=== PATIENT | female | born 2000 | race African-American/Black ===

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

== ENCOUNTER 2019-05-16 11:59 | Observation (INO) ==
[2019-05-16] MEDS ORDERED: SODIUM CHLORIDE 0.9% 1,000 ML IV STA (13:31)
[2019-05-16] MEDS ORDERED: HYDROmorphone 2 MG/1 ML VIAL IV STA ×2 (13:32→14:11)
[2019-05-16 13:42] LABS: Basophils % 0.3 % (0.0-0.8); Eosinophils # 0.3 10*3/uL (0.0-0.87); Hematocrit 36.4 VOL% (35.7-47.0); Immature Granulocytes % 0.9 %; Immature Granulocytes Absolute 0.12 #; Lymphocytes # 4.4 10*3/uL (1.4-4.0); Lymphocytes % 31.8 % (21.3-54.2); Mean Corpuscular Volume 79.5 FL (87-102); Mean Platelet Volume 12.2 FL (9.6-12.0); Monocytes % 3.9 % (1.7-12.7); Neutrophils % 61.1 % (38.7-73.9); Platelet Count 240 T/CUMM (130-400); Red Blood Count 4.58 MC/CUMM (3.8-5.5); Red Cell Distribution Width 15.5 % (9.3-17.3); White Blood Count 13.7 T/CUMM (4-12)
[2019-05-16 14:01] LABS: Calcium 9.1 MG/DL (8.5-10.1)
[2019-05-16 14:03] LABS: Apearance,Urine Slightly Hazy (Clear); Bilirubin,Urine Negative (Negative); Blood, Urine Negative (Negative); Glucose,Urine (UA) Negative (Negative); Ketones,Urine Negative (Negative); Mucus,Urine Occasional /LPF (Occasional); Nitrite,Urine Negative (Negative); Protein,Urine Negative; RBC,Urine 1 /HPF (0-4); Squamous Epithelial Cell,Urine Occasional /HPF (0-10); Urine Color Yellow (Yellow); Urine Specific Gravity 1.012 (1.001-1.035); Urine Urobilinogen < 2.0 EU/DL (0.2-1.0); WBC,Urine 1 /HPF (0-6)
[2019-05-16] MEDS ORDERED: LACTULOSE 20 GM/30 ML UDCUP PO PRN (14:30)
[2019-05-16] MEDS ORDERED: DOCUSATE SODIUM 100 MG CAPSULE PO PRN (14:30)
[2019-05-16] MEDS: SODIUM CHLORIDE 0.45% 1,000 ML IV SCH (14:57)
[2019-05-16] MEDS: ONDANSETRON 4 MG/2 ML VIAL IV PRN ×2 (15:23→20:04)
[2019-05-16] MEDS ORDERED: RIZATRIPTAN ODT 5 MG TABLET PO PRN (16:41)
[2019-05-16] MEDS: PANTOPRAZOLE 40 MG TABLET PO SCH (20:04)
[2019-05-16] MEDS: HYDROmorphone 2 MG/1 ML VIAL IV PRN (20:04)
[2019-05-16] MEDS ORDERED: FOLIC ACID 1 MG TABLET PO SCH (21:00)
[2019-05-16] MEDS ORDERED: RIVAROXABAN 10 MG TABLET PO SCH (21:00)
[2019-05-17] MEDS: SODIUM CHLORIDE 0.45% 1,000 ML IV SCH ×2 (03:06→03:25)
[2019-05-17] MEDS: ONDANSETRON 4 MG/2 ML VIAL IV PRN (03:30)
[2019-05-17] MEDS: HYDROmorphone 2 MG/1 ML VIAL IV PRN ×2 (03:38→07:52)
[2019-05-17 05:29] LABS: Basophils % 0.2 % (0.0-0.8); Eosinophils # 0.2 10*3/uL (0.0-0.87); Eosinophils % 1.4 % (0.00-10.9); Hematocrit 34.5 VOL% (35.7-47.0); Hemoglobin 11.2 GM/DL (12.0-16.0); Immature Granulocytes % 0.6 %; Immature Granulocytes Absolute 0.09 #; Lymphocytes # 3.9 10*3/uL (1.4-4.0); Lymphocytes % 26.8 % (21.3-54.2); Mean Corpuscular HGB Conc 32.5 GM/DL (32-36); Mean Corpuscular Volume 79.5 FL (87-102); Mean Platelet Volume 13.1 FL (9.6-12.0); Monocytes % 4.6 % (1.7-12.7); Neutrophils % 66.4 % (38.7-73.9); Platelet Count 230 T/CUMM (130-400); Red Blood Count 4.34 MC/CUMM (3.8-5.5); Red Cell Distribution Width 15.1 % (9.3-17.3); White Blood Count 14.4 T/CUMM (4-12)
[2019-05-17 06:08] LABS: Calcium 8.6 MG/DL (8.5-10.1); Osmolality,Calculated 268.8 MOS/KG (273-304)
[2019-05-17 08:25] VITALS: BP 116/57
[2019-05-17] MEDS: PANTOPRAZOLE 40 MG TABLET PO SCH (08:36)
[2019-05-17] MEDS ORDERED: DULoxetine 30 MG CAPSULE PO SCH (09:00)
[2019-05-17] MEDS ORDERED: HYDROXYUREA 500 MG CAPSULE PO SCH (09:00)
[2019-05-25 15:08] LABS: Variant 68.8 = Hb S %
== END 2019-05-17 12:00 | disposition home or self-care (01) ==
LOC: N.EDINP 11:59 → N.ED 11:59 → N.EDINP 16:00 → N.2W 16:29
PROVIDERS: ADMIT Hospitalist; ATTEND Hospitalist

== ENCOUNTER 2019-08-14 08:30 | Inpatient (IN) ==
[2019-08-14] MEDS ORDERED: SODIUM CHLORIDE 0.9% 1,000 ML IV STA (08:49)
[2019-08-14] MEDS ORDERED: fentaNYL 100 MCG/2 ML VIAL IV STA (08:49)
[2019-08-14 10:28] LABS: Basophils # 0.1 10*3/uL (0.0-0.2); Basophils % 0.6 % (0.0-0.8); Eosinophils # 0.2 10*3/uL (0.0-0.87); Eosinophils % 1.3 % (0.00-10.9); Hematocrit 37.5 VOL% (35.7-47.0); Hemoglobin 12.2 GM/DL (12.0-16.0); Immature Granulocytes % 1.4 %; Lymphocytes # 5.1 10*3/uL (1.4-4.0); Lymphocytes % 35.4 % (21.3-54.2); Mean Corpuscular HGB Conc 32.5 GM/DL (32-36); Mean Corpuscular Volume 79.8 FL (87-102); Mean Platelet Volume 12.6 FL (9.6-12.0); Monocytes % 5.7 % (1.7-12.7); NRBC # 0.02 10*3/uL; Neutrophils % 55.6 % (38.7-73.9); Platelet Count 218 T/CUMM (130-400); Red Cell Distribution Width 14.6 % (9.3-17.3); White Blood Count 14.3 T/CUMM (4-12)
[2019-08-14 10:36] LABS: INR 1.1; PT Patient Result 11.5 SECS (9.8-11.9)
[2019-08-14 10:47] LABS: Bilirubin,Total 0.6 MG/DL (0.2-1.0); Calcium 9.4 MG/DL (8.5-10.1); Ferritin 71.9 ng/ml (8-252)
[2019-08-14] MEDS ORDERED: SODIUM CHLORIDE 0.9% 1,000 ML IV PRN (11:30)
[2019-08-14] MEDS ORDERED: NALOXONE 0.4 MG/ML VIAL IV PRN (11:30)
[2019-08-14] MEDS ORDERED: ONDANSETRON 4 MG/2 ML VIAL IV PRN (11:30)
[2019-08-14] MEDS: DEXTROSE 5% NACL 0.45% 1,000 ML IV SCH ×3 (13:52→21:42)
[2019-08-14] MEDS: ENOXAPARIN 40 MG/0.4 ML SYRINGE SUBCUT SCH (13:53)
[2019-08-14] MEDS: HYDROmorphone PCA 30 MG/30 ML SYRINGE IV SCH (14:13)
[2019-08-14] MEDS: AMITRIPTYLINE 25 MG TABLET PO SCH (21:32)
[2019-08-15] MEDS: DEXTROSE 5% NACL 0.45% 1,000 ML IV SCH ×3 (01:14→17:44)
[2019-08-15 06:18] LABS: Basophils % 0.3 % (0.0-0.8); Eosinophils # 0.2 10*3/uL (0.0-0.87); Eosinophils % 1.4 % (0.00-10.9); Hematocrit 34.3 VOL% (35.7-47.0); Hemoglobin 11.2 GM/DL (12.0-16.0); Immature Granulocytes % 0.9 %; Lymphocytes # 2.9 10*3/uL (1.4-4.0); Mean Corpuscular HGB Conc 32.7 GM/DL (32-36); Monocytes % 6.6 % (1.7-12.7); Neutrophils % 64.8 % (38.7-73.9); Platelet Count 197 T/CUMM (130-400); Red Blood Count 4.34 MC/CUMM (3.8-5.5); Red Cell Distribution Width 14.6 % (9.3-17.3); White Blood Count 11.3 T/CUMM (4-12)
[2019-08-15 06:48] LABS: Albumin 3.5 G/DL (3.4-5.0); Bilirubin,Total 0.7 MG/DL (0.2-1.0); Calcium 8.8 MG/DL (8.5-10.1); Total Protein 7.1 G/DL (6.4-8.3)
[2019-08-15] MEDS ORDERED: ERGOCALCIFEROL 50,000 UNIT CAPSULE PO SCH (09:00)
[2019-08-15] MEDS: FOLIC ACID 1 MG TABLET PO SCH (09:51)
[2019-08-15] MEDS: HYDROXYUREA 500 MG CAPSULE PO SCH (09:51)
[2019-08-15] MEDS: PANTOPRAZOLE 40 MG TABLET PO SCH (09:52)
[2019-08-15 10:19] LABS: Apearance,Urine CLEAR (Clear); Bacteria,Urine Moderate /HPF (Few); Bilirubin,Urine Negative (Negative); Blood, Urine Negative (Negative); Glucose,Urine (UA) Negative (Negative); Ketones,Urine Negative (Negative); Nitrite,Urine Negative (Negative); Protein,Urine Negative; RBC,Urine 2 /HPF (0-4); Squamous Epithelial Cell,Urine Occasional /HPF (0-10); Urine Color Straw (Yellow); Urine Specific Gravity 1.004 (1.001-1.035); Urine Urobilinogen < 2.0 EU/DL (0.2-1.0); WBC,Urine 1 /HPF (0-6)
[2019-08-15] MEDS ORDERED: HYDROmorphone PCA 30 MG/30 ML SYRINGE IV SCH (11:30)
[2019-08-15] MEDS: ACETAMINOPHEN 325 MG TABLET PO PRN ×2 (12:24→20:56)
[2019-08-15] MEDS: HYDROmorphone PCA 30 MG/30 ML SYRINGE IV SCH (12:35)
[2019-08-15] MEDS: ENOXAPARIN 40 MG/0.4 ML SYRINGE SUBCUT SCH (14:24)
[2019-08-15] MEDS: AMITRIPTYLINE 25 MG TABLET PO SCH (20:52)
[2019-08-16] MEDS: DEXTROSE 5% NACL 0.45% 1,000 ML IV SCH ×2 (07:17→16:14)
[2019-08-16 07:33] LABS: Basophils % 0.3 % (0.0-0.8); Eosinophils # 0.3 10*3/uL (0.0-0.87); Eosinophils % 2.5 % (0.00-10.9); Hematocrit 33.9 VOL% (35.7-47.0); Hemoglobin 11.3 GM/DL (12.0-16.0); Immature Granulocytes % 0.6 %; Immature Granulocytes Absolute 0.07 #; Lymphocytes # 3.4 10*3/uL (1.4-4.0); Mean Corpuscular HGB Conc 33.3 GM/DL (32-36); Mean Corpuscular Volume 77.9 FL (87-102); Mean Platelet Volume 11.8 FL (9.6-12.0); Monocytes % 4.1 % (1.7-12.7); Neutrophils % 63.5 % (38.7-73.9); Platelet Count 199 T/CUMM (130-400); Red Blood Count 4.35 MC/CUMM (3.8-5.5); Red Cell Distribution Width 14.2 % (9.3-17.3); White Blood Count 11.8 T/CUMM (4-12)
[2019-08-16] MEDS: FOLIC ACID 1 MG TABLET PO SCH (09:09)
[2019-08-16] MEDS: HYDROXYUREA 500 MG CAPSULE PO SCH (09:09)
[2019-08-16] MEDS: PANTOPRAZOLE 40 MG TABLET PO SCH (09:10)
[2019-08-16] MEDS ORDERED: oxyCODONE/ACETAMINOPHEN 5-325 MG TABLET PO PRN (09:59)
[2019-08-16] MEDS ORDERED: ASCORBIC ACID 500 MG TABLET PO SCH (10:30)
[2019-08-16] MEDS: DOXYCYCLINE HYCLATE 100 MG CAPSULE PO SCH ×2 (11:11→21:19)
[2019-08-16] MEDS: metroNIDAZOLE 500 MG TABLET PO SCH ×2 (11:11→21:19)
[2019-08-16] MEDS: ENOXAPARIN 40 MG/0.4 ML SYRINGE SUBCUT SCH (13:46)
[2019-08-16] MEDS: ACETAMINOPHEN 325 MG TABLET PO PRN ×2 (15:42→21:19)
[2019-08-16] MEDS: ASCORBIC ACID 500 MG TABLET PO SCH (21:19)
[2019-08-16] MEDS: AMITRIPTYLINE 25 MG TABLET PO SCH (21:19)
[2019-08-17 07:57] LABS: Basophils # 0.1 10*3/uL (0.0-0.2); Basophils % 0.5 % (0.0-0.8); Eosinophils # 0.4 10*3/uL (0.0-0.87); Eosinophils % 3.5 % (0.00-10.9); Hematocrit 36.4 VOL% (35.7-47.0); Immature Granulocytes % 0.6 %; Immature Granulocytes Absolute 0.06 #; Lymphocytes # 3.1 10*3/uL (1.4-4.0); Lymphocytes % 30.6 % (21.3-54.2); Mean Platelet Volume 12.9 FL (9.6-12.0); Monocytes % 5.1 % (1.7-12.7); Neutrophils % 59.7 % (38.7-73.9); Platelet Count 243 T/CUMM (130-400); Red Blood Count 4.61 MC/CUMM (3.8-5.5); Red Cell Distribution Width 14.1 % (9.3-17.3); White Blood Count 10.2 T/CUMM (4-12)
[2019-08-17] MEDS: ASCORBIC ACID 500 MG TABLET PO SCH (08:30)
[2019-08-17] MEDS: DOXYCYCLINE HYCLATE 100 MG CAPSULE PO SCH (08:30)
[2019-08-17] MEDS: metroNIDAZOLE 500 MG TABLET PO SCH (08:30)
[2019-08-17] MEDS: FOLIC ACID 1 MG TABLET PO SCH (08:30)
[2019-08-17] MEDS: HYDROXYUREA 500 MG CAPSULE PO SCH (08:30)
[2019-08-17 08:38] LABS: Calcium 9.1 MG/DL (8.5-10.1); Osmolality,Calculated 272.8 MOS/KG (273-304)
[2019-08-17] MEDS: PANTOPRAZOLE 40 MG TABLET PO SCH (09:04)
[2019-08-17 12:51] VITALS: BP 136/79
== END 2019-08-17 12:56 | disposition home or self-care (01) | DRG 662 ==
LOC: N.ED 08:30 → N.EDINP 11:30 → SUATTDRO 11:30 → N.TELES 12:00
PROVIDERS: ADMIT Family Medicine; ATTEND Internal Medicine